=== PATIENT | male | born 1975 | race Caucasian/White ===

== ENCOUNTER 2021-06-27 12:03 | Outpatient (CLI) | payer MEDICAID ==
--- NOTE | 2021-07-01 07:50 | XRAY Report ---
PROCEDURE: Lumbar Spine 2 View INDICATIONS: DORSOPATHY DORSALGIA,SCIATICA BILAT, IDD LUMBAR TECHNIQUE: 2 views of the lumbar spine were acquired. COMPARISON: None. FINDINGS: Mild anterior wedging of the T12 and L1 vertebral bodies, possibly L2. These findings technically ind eterminate and could be physiologic. Scattered multilevel endplate spurring and diffuse facet arthrop athy. Straightening of the normal lordotic curvature. Severe narrowing of the L2-L3 disc space. Grad e 1 retrolisthesis of L2 on L3 and L3 on L4. Grade 1 retrolisthesis of L5 on S1. Mild levocurvature. Scattered small Schmorl's nodes. IMPRESSION: Lumbar spondylosis and facet arthropathy, most pronounced at L2-L3 as above. Multilevel spondylolistheses as above. Mild levocurvature Reviewed by: Dave Otero MD on 06/27/2021 1:16 PM PDT Approved by: Dave Otero MD on 06/27/2021 1:16 PM PDT Station ID: [id number]
== END 2021-06-27 12:04 | disposition home or self-care (01) ==
LOC: DI 12:03
PROVIDERS: ATTEND Family Medicine
DX: M43.16 Spondylolisthesis, lumbar region (principal); M43.17 Spondylolisthesis, lumbosacral region; M47.816 Spondylosis without myelopathy or radiculopathy, lumbar region; M51.36 Other intervertebral disc degeneration, lumbar region; M51.46 Schmorl's nodes, lumbar region

== ENCOUNTER 2021-08-07 08:40 | Outpatient (CLI) | payer MEDICAID ==
--- NOTE | 2021-08-07 11:21 | MRI Report ---
PROCEDURE: Lumbar Spine W/O INDICATIONS: DDD LUMBAR TECHNIQUE: Noncontrast sagittal T1 spin echo and T2 fast echo, sagittal STIR, axial T1 and T2 fast spin echo thr ough the lumbar spine. In cases with scoliosis, additional coronal T2 fast spin echo may be performe d. COMPARISON: Correlation is made with outside lumbar plain films, 06/27/2021 FINDINGS: Image quality: Diagnostic, with note made of motion artifact. Alignment and Curvature: There is minimal levoconvex lumbar sclerotic curvature. Bone Marrow: Marrow is of normal overall signal. No acute vertebral body compression fractures. Spinal Cord: Conus medullaris terminates at the L1-L2 level. Visualized cord demonstrates normal si gnal and size. Paraspinous Soft Tissues: No paravertebral masses. T12-L1: Moderate loss of disc height and signal are seen. Mild disc bulge is seen. No significant neural foraminal or central canal narrowing can be seen. L1-L2: The disc height and disc signal are relatively well-preserved. Remote Schmorl's nodes can b e seen involving the inferior endplate of L1 and the superior endplate of L2. Mild disc bulge is see n. Mild bilateral neural foraminal narrowing is seen. No central canal narrowing is seen. L2-L3: At least moderate loss of disc height and disc signal can be seen. Reactive marrow endplat e changes are seen, which are hyperintense on T1-weighted and T2-weighted imaging, without significan t increased STIR signal. These imaging findings are most consistent with fatty metaplasia (Modic type 2 change). At least moderate disc bulge is seen, with a central disc protrusion. Mild facet hypert rophy is seen. There is at least moderate bilateral neuroforaminal narrowing seen, right worse than left. Moderate to severe central canal narrowing is seen, as on series 601 image 26. L3-L4: The disc height is well-preserved. There is loss of disc signal seen. Mild disc bulge is se en. Mild facet hypertrophy is seen. There is moderate right-sided and at least moderate left-sided neuroforaminal narrowing seen. There is a mild degree of compression seen upon the exiting left L3 n erve root. Moderate central canal narrowing is seen. L4-L5: Mild to moderate loss of disc height and disc signal can be seen. At least moderate disc bul ge is seen, which is eccentric to the right. There is a relatively prominent central disc protrusion, as on series 601 image 13. Moderate facet hypertrophy is seen. Fluid is seen within the facet join ts themselves. There is at least moderate bilateral neuroforaminal narrowing seen. Severe central ca nal narrowing is seen at this level. L5-S1: Mild loss of disc height and disc signal are seen. Mild to moderate disc bulge is seen, with a mild central disc protrusion. Mild facet hypertrophy is seen. There is moderate to severe bilate ral neuroforaminal narrowing seen at this level. Compression is seen upon the exiting nerve roots. M ild to moderate central canal narrowing is seen. IMPRESSION: Multiple levels of lumbar spine degenerative change are seen, which are overall worst at L2-L3 and L4-L5. Reviewed by: Jameel Pimentel MD on 08/07/2021 10:19 AM HOWARD Approved by: Jameel Pimentel MD on 08/07/2021 10:19 AM HOWARD Station ID: [id number]
== END 2021-08-07 08:41 | disposition home or self-care (01) ==
LOC: DI 08:40
PROVIDERS: ATTEND Family Medicine
DX: M51.16 Intervertebral disc disorders with radiculopathy, lumbar region (principal); M48.061 Spinal stenosis, lumbar region without neurogenic claudication; M51.17 Intervertebral disc disorders with radiculopathy, lumbosacral region; M48.07 Spinal stenosis, lumbosacral region; M47.27 Other spondylosis with radiculopathy, lumbosacral region; M47.26 Other spondylosis with radiculopathy, lumbar region

== ENCOUNTER 2021-09-11 10:44 | Outpatient (CLI) | payer MEDICAID ==
--- NOTE | 2021-09-11 11:44 | XRAY Report ---
PROCEDURE: Lumbar Spine w/Flex/Ext INDICATIONS: SPINAL STENOSIS, LUMBAR REGION WITH NEUROGENIC CLA TECHNIQUE: 4 views of the lumbar spine acquired. COMPARISON: None. FINDINGS: Bones: 5 [id number] vertebrae are present. There is mild levoscoliosis of lumbar spine centere d at L3 level. Degenerative endplate changes and bilateral facet arthrosis throughout lumbar spine i s seen more prominent at L2-3 and L4-5 levels. No vertebral body compression fractures. No suspiciou s bony lesions. Soft tissues: Overlying bowel gas pattern is normal. No suspicious soft tissue calcifications. Flexion/extension: There is decreased range of motion, with preserved lumbar spine alignment. IMPRESSION: Mild scoliosis as above. Degenerative disc disease throughout lumbar spine more prominen t at L2-3 and L4-5 levels. Decreased range of motion of lateral flexion and extension views with pres erved lumbar spine alignment. Reviewed by: Nehemias Tipton MD on 09/11/2021 11:43 AM PDT Approved by: Nehemias Tipton MD on 09/11/2021 11:43 AM PDT Station ID: [id number]
== END 2021-09-11 10:45 | disposition home or self-care (01) ==
LOC: DI 10:44
PROVIDERS: ATTEND Neurological Surgery
DX: M48.062 Spinal stenosis, lumbar region with neurogenic claudication (principal); M51.36 Other intervertebral disc degeneration, lumbar region; M47.816 Spondylosis without myelopathy or radiculopathy, lumbar region

== ENCOUNTER 2022-05-29 12:22 | Emergency (ER) | payer MEDICAID ==
[2022-05-29 12:42] VITALS: BP 150/99
[2022-05-29] MEDS ORDERED: HYDROmorphone 1 MG/ML CARPUJECT IM STA (12:43)
[2022-05-29] MEDS ORDERED: KETOROLAC 60 MG/2 ML VIAL IM STA (12:43)
[2022-05-29] MEDS ORDERED: CHERRY SYRUP 10 ML UDC PO ONE (12:45)
[2022-05-29] MEDS ORDERED: DEXAMETHASONE 10 MG/ML VIAL PO STA (12:45)
--- NOTE | 2022-05-29 12:46 | ED Physician Documentation ---
PD HPI BACK PAIN - Stated complaint Stated Complaint: BOTH LEGS - Chief complaint Chief Complaint: Back Pain - History obtained from History obtained from: Patient - Additional information Additional information: 46-year-old gentleman has chronic back pain. Had an MRI done in July of last year demonstrating multilevel degenerative disease worst at L2-L3 and L3- L4. The last 2 days his pain is increased. It is in the low back, radiating to the left buttock. He has some numbness in both legs which is not present at the current time. He denies current saddle anesthesia, fevers or incontinence. States the symptoms get worse if he is upright. Review of Systems Constitutional: reports: Reviewed and negative Eyes: reports: Reviewed and negative Ears: reports: Reviewed and negative Cardiac: reports: Reviewed and negative Respiratory: reports: Reviewed and negative PD PAST MEDICAL HISTORY - Past Medical History Cardiovascular: Hypertension Respiratory: None Neuro: Other Endocrine/Autoimmune: None GI: None : Kidney stones HEENT: None Psych: None Musculoskeletal: None Derm: None - Past Surgical History Past Surgical History: No - Present Medications Home Medications: Ambulatory Orders Medication Instructions Recorded Confirmed Ondansetron Odt [Zofran] 4 mg TL Q6H PRN #10 tablet 06/16/19 - Allergies Allergies/Adverse Reactions: Allergies Allergy/AdvReac Type Severity Reaction Status Date / Time No Known Drug Allergies Allergy Verified 05/29/22 12:34 - Social History Does the pt smoke?: No Smoking Status: Never smoker PD ED PE NORMAL - Vitals Vital signs reviewed: Yes - General General: Alert and oriented X 3, No acute distress - Abdomen Abdomen: Normal bowel sounds, Soft, Non tender - Back Back: Other (Some tenderness to the low lumbar spine and left sciatic notch.) - Extremities Extremities: Other (The patient has equal and normal Achilles and patellar reflexes bilaterally. Normal sensation in all areas of the legs. Patient denies saddle anesthesia. Normal strength in flexion-extension at the ankles, knees, and flexion of the hips.) - Neuro Neuro: Alert and oriented X 3, Normal speech Results - Vitals Vitals: Vital Signs - 24 hr 05/29/22 12:34 Temperature 36.5 C Heart Rate 90 Respiratory 16 Rate Blood Pressure 150/99 H O2 Saturation 99 Oxygen O2 Source Room air PD MEDICAL DECISION MAKING - ED course ED course: This patient has seemingly uncomplicated musculoskeletal back pain. The patient has no "red flags." Specifically denies IV drug use, fevers, incontinence, saddle anesthesia. Spinal epidural abscess was considered, given that the patient has no fever, is not diabetic, does not use IV drugs, the diagnosis of spinal epidural abscess is considered exceedingly unlikely. He has symptoms concerning for spinal stenosis though, but his exam is normal currently. Follow-up with his spine surgeon was advised. Departure - Departure Disposition: 01 Home, Self Care Clinical Impression: Spinal stenosis Qualifiers: Spinal region: lumbar Neurogenic claudication status: unspecified Qualified Code(s): M48.061 - Spinal stenosis, lumbar region without neurogenic claudication Condition: Good Record reviewed to determine appropriate education?: Yes Instructions: ED Sciatica Comments: Reasonable to follow-up with your spine surgeon given the symptoms that suggest spinal stenosis. That said thankfully the symptoms are not present currently on exam other than the pain. Call your spine surgeon for next available appointment. Return for new or worsening symptoms symptoms.
== END 2022-05-29 12:56 | disposition home or self-care (01) ==
LOC: ED 12:22
DX: M48.061 Spinal stenosis, lumbar region without neurogenic claudication (principal)
CPT/HCPCS: 96372; 99283; A9270; J1170